=== PATIENT | male | born 1955 | race Caucasian/White ===

== ENCOUNTER → 2018-12-03 | Outpatient (CLI) | payer OTHER ==
[~2018-12-03] MED LIST: DIOVAN320 MG PO; DOXYCYCLINE 10100 M1 PO; HYDROCHLOROTHIA25 M1 PO; LEVOTHROID150 MC1 PO; NORVASC10 MG PO; PRAVASTATIN SOD80 MG PO; SYNTHROID125 MCG PO; TOPROL XL100 MG PO; TRIAMCINOLONE A80 G2; [UNRECOGNIZED DRUG - OTHER]
== END ==
LOC: ULTRA 08:12
DX: R16.2 Hepatomegaly with splenomegaly, not elsewhere classified (principal); K76.0 Fatty (change of) liver, not elsewhere classified; N28.1 Cyst of kidney, acquired; E78.2 Mixed hyperlipidemia

== ENCOUNTER 2020-09-18 15:22 | Emergency (ER) | payer OTHER, MEDICARE ==
[~2020-09-18] VITALS: Ht 182.9 cm; Wt 83.9 kg
[2020-09-18 16:01] LABS: ABSOLUTE NEUTROPHILS 6.2 thou/uL (1.4-8.2); BASOPHILS 0.9 % (0.0-2.0); EOSINOPHILS 0.3 % (0.0-3.0); HEMATOCRIT 48.6 % (42.0-52.0); MCH 32.1 pg (26.0-34.0); MCV 91.8 fL (80.0-100.0); MONOCYTES 3.6 % (1.0-8.0); PLATELET COUNT 203 thou/uL (150-400); POLYS 81.2 % (36.0-66.0); RBC 5.29 mil/uL (4.50-6.00); WBC 7.7 thou/uL (4.0-11.0)
[2020-09-18 16:02] LABS: CREATININE 1.2 mg/dL (0.7-1.3); POTASSIUM 4.2 mmol/L (3.5-5.1)
[2020-09-18 16:08] LABS: ALBUMIN 3.7 g/dL (3.4-5.0); TOTAL BILIRUBIN 0.8 mg/dL (0.2-1.0)
[2020-09-18] MEDS ORDERED: IRBESARTAN-HCT1 EACH PO (16:10)
[2020-09-18] MEDS ORDERED: TOPROL XL25 MG PO (16:12)
[2020-09-18] MEDS ORDERED: TURMERIC COMPL1 EACH PO (16:12)
[2020-09-18] MEDS ORDERED: NORVASC5 MG PO (16:13)
[2020-09-18] MEDS ORDERED: LIPITOR 20 MG T20 M1 PO (16:14)
[2020-09-18] MEDS ORDERED: ASA81BEC PO (16:14)
[2020-09-18] MEDS ORDERED: REGLAN 10 MG TA10 MG PO (17:14)
[2020-09-18] MEDS ORDERED: MECLIZINE HCL25 M1 PO (17:14)
[2020-09-18 19:15] VITALS: BP 142/73
--- NOTE | 2020-09-19 07:25 | EKG ---
[facility] [place] [place] [address] ELECTROCARDIOGRAM REPORT Name: ELIZABETH QUICK Room #: [facility] [id number] Admission: 09/18/20 Attend Phys: Discharge: 09/18/20 Date of : 55 Report #: [id number] [facility] Test Date: 2020-09-18 Test Time: 16:00:42 Pat Name: ELIZABETH QUICK Department: Room: Gender: M Business Relationship Manager: AMRITA : 1955 Requested By: Isael Tai Order Number: [id number] MD: Maksim Manzo Measurements Intervals [place] Rate: 57 P: 16 FL: 200 QRS: -39 QRSD: 98 T: -3 QT: 458 QTc: 446 Interpretive Statements Sinus rhythm Left atrial enlargement Left axis deviation Abnormal R-wave progression, late transition No previous ECG available for comparison Electronically Signed On 09-19-2020 7:25:10 CDT by Maksim Manzo [email or web address] <ELECTRONICALLY SIGNED> By: Maksim Manzo MD, [facility] 09/19/20 0725 1600 [facility] Maksim Manzo MD, FACC /EPI
== END 2020-09-18 19:01 | disposition home or self-care (01) ==
LOC: ER 15:22
PROVIDERS: Emergency Medicine
DX: R42 Dizziness and giddiness (principal); I10 Essential (primary) hypertension; E78.5 Hyperlipidemia, unspecified; Z79.82 Long term (current) use of aspirin; Z79.899 Other long term (current) drug therapy